=== PATIENT | male | born 1985 | race African-American/Black ===

== ENCOUNTER 2016-04-21 19:25 | Emergency (ER) | payer OTHER ==
[2016-04-21 19:34] VITALS: TEMP 97.9; BMI 34.7
--- NOTE | 2016-04-21 19:54 | PDOC ---
History of Present Illness - General History Source: Patient Exam Limitations: No Limitations - History of Present Illness Initial Comments: 04/21/16 21:38 The patient is a 30-year-old male, with a significant past medical history of migraines, hypertension(on atenolol), and pre-diabetes, who presents to the emergency department complaining of a migraine for approximately 2 days. The patient reports he typically experiences 1 episode of migraines per week, which usually resolve, but today it has not. The patient states he took a percocet at approximately 14:00, with minimal relief for about an hour, but the headache has returned. The patient reports his migraine is normally localized on the left side of his head, but today it is on the right side. He states he has trouble opening his right eye due to right-sided headache. The patient reports his headache is exacerbated with exposure to light, and mildly alleviated in a darker environment. He reports associated nausea, but denies vomiting, diarrhea , or constipation. He reports intermittent SOB, but denies chest pain, palpitations, diaphoresis. He reports he has been having cold-like symptoms since June of 2015. He reports he was treated for an ear infection on 04/10/16, for which he was given ear drops. The patient denies any recent travel. The patient denies any sick contacts. Allergies: None reported. Past Surgical History: Knee surgery (1 month ago) Social History: Non-smoker. Denies alcohol or drug use. <Tracy Murrieta - Last Filed: 04/22/16 02:53> <Xuan Wick - Last Filed: 04/23/16 02:11> - General Chief Complaint: Migraine Headache Stated Complaint: HEADACHE Time Seen by Provider: 04/21/16 19:54 Past History <Tracy Murrieta - Last Filed: 04/22/16 02:53> - Psycho/Social/Smoking Cessation Hx Suicidal Ideation: No Smoking History: Never smoked Information on smoking cessation initiated: No Hx Alcohol Use: No Drug/Substance Use Hx: No <Xuan Wick - Last Filed: 04/23/16 02:11> - Past Medical History Allergies/Adverse Reactions: Allergies Allergy/AdvReac Type Severity Reaction Status Date / Time No Known Allergies Allergy Verified 04/21/16 19:30 Home Medications: Ambulatory Orders Atenolol [Tenormin] 50 mg PO DAILY 04/21/16 Oxycodone HCl/Acetaminophen [Percocet 5-325 mg Tablet] 1 tab PO Q6H PRN Review of Systems - Review of Systems Able to Perform ROS?: Yes Comments:: 04/21/16 21:38 GENERAL/CONSTITUTIONAL: No fever or chills. No weakness. HEAD, EYES, EARS, NOSE AND THROAT: +Photophobia. No ear pain or discharge. No sore throat. CARDIOVASCULAR: +Intermittent SOB. No chest pain. RESPIRATORY: No cough, wheezing, or hemoptysis. GASTROINTESTINAL: +Nausea. No vomiting, diarrhea or constipation. GENITOURINARY: No dysuria, frequency, or change in urination. MUSCULOSKELETAL: No joint or muscle swelling or pain. No neck or back pain. SKIN: No rash NEUROLOGIC: +Headache. No vertigo, loss of consciousness, or change in strength/ sensation. ENDOCRINE: No increased thirst. No abnormal weight change. HEMATOLOGIC/LYMPHATIC: No anemia, easy bleeding, or history of blood clots. ALLERGIC/IMMUNOLOGIC: No hives or skin allergy. <Tracy Murrieta - Last Filed: 04/22/16 02:53> *Physical Exam - Vital Signs Last Vital Signs Temp Pulse Resp BP Pulse Ox 97.9 F 58 L 14 143/79 97 04/21/16 19:30 04/21/16 19:30 04/21/16 19:30 04/21/16 19:30 04/21/16 19:30 - Physical Exam Comments: 04/21/16 21:38 GENERAL: Awake, alert, and fully oriented. +Mild discomfort HEAD: No signs of trauma EYES: PERRLA, EOMI, sclera anicteric, conjunctiva clear ENT: +2 Postauricular nodes. Tympanic membranes normal bilaterally. Hearing grossly normal, nares patent, oropharynx clear without exudates. Moist mucosa NECK: Normal ROM, supple, no lymphadenopathy, JVD, or masses LUNGS: Breath sounds equal, clear to auscultation bilaterally. No wheezes, and no crackles HEART: Regular rate and rhythm, normal S1 and S2, no murmurs, rubs or gallops ABDOMEN: Soft, nontender, normoactive bowel sounds. No guarding, no rebound. No masses EXTREMITIES: Normal range of motion, no edema. No clubbing or cyanosis. No cords, erythema, or tenderness NEUROLOGICAL: Cranial nerves II through XII grossly intact. Normal speech, normal gait SKIN: Warm, Dry, normal turgor, no rashes or lesions noted. <Tracy Murrieta - Last Filed: 04/22/16 02:53> - Vital Signs Last Vital Signs Temp Pulse Resp BP Pulse Ox 97.9 F 58 L 14 143/79 97 04/21/16 19:30 04/21/16 19:30 04/21/16 19:30 04/21/16 19:30 04/21/16 19:30 <Xuan Wick - Last Filed: 04/23/16 02:11> ED Treatment Course - LABORATORY CBC & Chemistry Diagram: 04/21/16 21:10 04/21/16 21:10 - RADIOLOGY Radiograph Interpretation: 04/21/16 22:37 EXAM: Head CT INTERPRETED BY: Dr. Jeter REVIEWED BY: Dr. Wick IMPRESSION: No CT evidence of acute intracranial pathology. <Tracy Murrieta - Last Filed: 04/22/16 02:53> - LABORATORY CBC & Chemistry Diagram: 04/21/16 21:10 04/21/16 21:10 <Xuan Wick - Last Filed: 04/23/16 02:11> Medical Decision Making - Medical Decision Making 04/22/16 02:43 Microblogged hospitalists at 02:43 for admission. Case discussed with Dr. Ordoñez at 02:53. <Tracy Murrieta - Last Filed: 04/22/16 02:53> - Medical Decision Making 04/22/16 06:58 Pt comes with a history of migraines. He has a PMD at [facility], but doesn't know the name; he takes percocet for headaches and states that the ANNE usually go away. For the last 2 days he has continued headaches. 04/22/16 07:36 Pt's headache improving with meds, but he still has a faint headache. We discussed the need for LP to r/o bleed, or to evaluate for viral / bacterial meningitis. 04/22/16 07:38 Patient has no xanthochromia when the specimen of spinal fluid is spun down. Pt will be sent home with neurology follow up. Pt is feeling vastly improved. 04/23/16 02:09 Pt will be discharged and asked to follow with neurology. <Xuan Wick - Last Filed: 04/23/16 02:11> *DC/Admit/Observation/Transfer - Attestations Scribe Attestion: 04/21/16 21:39 Documentation prepared by Tracy Murrieta, acting as medical care evaluation specialist for Xuan Wick MD. <Tracy Murrieta - Last Filed: 04/22/16 02:53> - Discharge Dispostion Admit: No <Xuan Wick - Last Filed: 04/23/16 02:11> Diagnosis at time of Disposition: Headache - Discharge Dispostion Condition at time of disposition: Improved - Referrals Referrals: Isidro Hoffmann MD [Staff Physician] - Kelly Flores MD [Staff Physician] - Alise Evans MD [Staff Physician] - Kell Boateng MD [Staff Physician] - Balwinder Mckeon MD [Staff Physician] - Yan Underwood MD [Staff Physician] - Joseluis Lerma MD [Non Staff, Medical] - - Patient Instructions Printed Discharge Instructions: DI for Headache
[2016-04-21] MEDS ORDERED: METOCLOPRAMIDE HCL INJECTION 10 MG/2 ML VIAL IM ONE (20:49)
[2016-04-21] MEDS ORDERED: diphenhydrAMINE HCL 25 MG CAPSULE (FP) PO ONE ×2 (20:49→20:54)
[2016-04-21] MEDS ORDERED: OXYCODONE/APAP 5/325MG COMBO TABLET PO ONE (20:50)
[2016-04-21] MEDS ORDERED: METOCLOPRAMIDE HCL INJECTION 10 MG/2 ML VIAL ONE (20:54)
[2016-04-21] MEDS ORDERED: OXYCODONE/APAP 5/325MG COMBO TABLET ONE (20:54)
[2016-04-21 21:17] LABS: EOSINOPHIL 1.4 % (0-4.5); MCHC 32.9 g/dl (32.0-35.9); MEAN CELL VOLUME 88.2 fl (80-96); MEAN PLT VOLUME 7.3 fl (7.5-11.1); NEUTROPHILS 74.4 % (42.8-82.8); PLATELET COUNT 432 K/MM3 (134-434); RDW 13.2 % (11.9-15.9); WHITE BLOOD COUNT 15.8 K/mm3 (4.0-10.0)
[2016-04-21 21:30] LABS: INR 1.02 (0.82-1.09); PROTHROMBIN TIME (PATIENT) 11.2 SEC (9.98-11.88)
[2016-04-21 21:39] LABS: ALBUMIN 4.1 g/dl (3.4-5.0); ANION GAP 6 (8-16); BILIRUBIN,TOTAL 0.3 mg/dL (0.2-1.0); CO2 31 mmol/L (21-32); CREATININE 1.1 mg/dL (0.7-1.3); GLUCOSE,RANDOM 107 mg/dL (74-106); SGOT/AST 24 U/L (15-37); SGPT/ALT 62 U/L (12-78); TOT PROT 8.2 g/dl (6.4-8.2)
[2016-04-21 21:40] LABS: ALK PHOS 62 U/L (45-117)
[2016-04-22] MEDS ORDERED: LIDOCAINE HCL/PF 1% SDV 5ML VIAL ONE (00:39)
[2016-04-22 02:46] LABS: GLUCOSE,CSF 64 mg/dL (50-80)
[2016-04-22 03:44] LABS: CSF APPEARANCE HAZY; CSF COLOR PINK
[2016-04-22 03:45] LABS: CSF NEUTROPHILS 33 %; CSF RBC 8700 /mm3
[2016-04-22 05:03] LABS: CSF APPEARANCE HAZY; CSF COLOR PINK
[2016-04-22 05:04] LABS: CSF NEUTROPHILS 34 %; CSF RBC 7100 /mm3
[2016-04-22 06:53] VITALS: BP 136/70; PULSE 62
== END 2016-04-22 07:50 | disposition home or self-care (01) ==
LOC: JER 19:25
PROC: 3E0233Z Introduction of Anti-inflammatory into Muscle, Percutaneous Approach (ICD-10-PCS; principal; 2016-04-21)
PROC: 009U3ZX Drainage of Spinal Canal, Percutaneous Approach, Diagnostic (ICD-10-PCS; 2016-04-21)
DX: G43.909 Migraine, unspecified, not intractable, without status migrainosus (principal)
CPT/HCPCS: 36415; 62270; 70450-TC; 71020-TC; 80053; 82945; 84157; 85025; 85610; 87070; 87205; 89050; 96372; 99282-25

== ENCOUNTER 2021-07-27 00:23 | Emergency (ER) | payer OTHER ==
[2021-07-27 00:40] VITALS: BP 142/90; PULSE 100; TEMP 98.2; BMI 36.6
[2021-07-27] MEDS ORDERED: DIPHTH,PERTUSS(ACELL),TET 0.5 ML DISP.SYRIN IM ONE ×2 (00:40→00:47)
[2021-07-27] MEDS ORDERED: AMOX TR/POT CLAV 875MG/125MG TABLETS (FP) PO ONE (00:41)
[2021-07-27] MEDS ORDERED: IBUPROFEN 600 MG TABLET (FP) PO ONE ×2 (00:41→00:47)
[2021-07-27] MEDS ORDERED: AMOX TR/POT CLAV 875MG/125MG TABLETS (FP) ONE (00:47)
== END 2021-07-27 01:46 | disposition home or self-care (01) ==
LOC: JER 00:23
PROC: 3E0234Z Introduction of Serum, Toxoid and Vaccine into Muscle, Percutaneous Approach (ICD-10-PCS; principal; 2021-07-27)
DX: S90.811A Abrasion, right foot, initial encounter (principal); W54.0XXA Bitten by dog, initial encounter
CPT/HCPCS: 90471; 90715; 99284-25

== ENCOUNTER 2021-08-05 22:23 | Inpatient (IN) | payer OTHER ==
[2021-08-05] MEDS ORDERED: AMPICILLIN NA/SULBACTAM NA 1.5 GM in SODIUM CHLORIDE 100 ML IVPB ONE (23:21)
[2021-08-05] MEDS ORDERED: VANCOMYCIN 1 GM in D5W (PRE-DOCKED) 1,000 MG/250 ML IVPB ONE (23:22)
[2021-08-06 00:03] LABS: BASO % 0.5 % (0-2.0); EOS % 2.4 % (0-4.5); HEMATOCRIT 40.9 % (35.4-49); HEMOGLOBIN 13.8 GM/dL (11.7-16.9); LYMPH % 42.1 % (8-40); MCH 29.3 pg (25.7-33.7); MCHC 33.8 g/dl (32.0-35.9); MEAN CELL VOLUME 86.7 fl (80-96); PLATELET COUNT 361 10^3/uL (134-434); RBC 4.72 M/mm3 (4.00-5.60); WHITE BLOOD COUNT 8.6 K/mm3 (4.0-10.0)
[2021-08-06] MEDS ORDERED: VANCOMYCIN 1 GRAM (PRE-DOCKED) 1,000 MG/250 ML BAG IVPB ONE (00:07)
[2021-08-06 00:19] LABS: INR 1.01 (0.83-1.09); PROTHROMBIN TIME (PATIENT) 11.6 SEC (9.7-13.0)
[2021-08-06 00:23] LABS: CHLORIDE 105 mmol/L (98-107); SODIUM 140 mmol/L (136-145)
[2021-08-06 00:25] LABS: CALCIUM 9.3 mg/dL (8.5-10.1)
[2021-08-06 00:26] LABS: ALBUMIN 3.7 g/dl (3.4-5.0); ANION GAP 4 MMOL/L (8-16); BLOOD UREA NITROGEN 15.7 mg/dL (7-18); CO2 30 mmol/L (21-32); GLUCOSE,RANDOM 120 mg/dL (74-106)
[2021-08-06 00:29] LABS: CREATININE 1.1 mg/dL (0.55-1.3); SGOT/AST 19 U/L (15-37); SGPT/ALT 44 U/L (13-61)
[2021-08-06] MEDS ORDERED: AMPICILLIN NA/SULBACTAM NA 3 GM in SODIUM CHLORIDE 100 ML IVPB ONE (00:29)
[2021-08-06 00:30] LABS: BILIRUBIN,TOTAL 0.4 mg/dL (0.2-1)
[2021-08-06 00:31] LABS: TOT PROT 7.2 g/dl (6.4-8.2)
[2021-08-06 00:32] LABS: ALK PHOS 50 U/L (45-117)
[2021-08-06 08:25] VITALS: TEMP 97.8; BMI 36.6
[2021-08-06] MEDS ORDERED: AMPICILLIN NA/SULBACTAM NA 3 GM in SODIUM CHLORIDE 100 ML IVPB SCH ×2 (09:00→09:58)
[2021-08-06] MEDS ORDERED: VANCOMYCIN/WATER 1,250 MG/250 ML BAG IVPB SCH ×2 (10:00)
[2021-08-06] MEDS ORDERED: ENOXAPARIN NA (PORCINE) 40 MG/0.4 ML DISP.SYRIN SQ SCH (10:00)
[2021-08-06 11:11] VITALS: BP 151/105; PULSE 68
[2021-08-06] MEDS ORDERED: amLODIPine BESYLATE 10 MG TABLET (FP) PO SCH (11:30)
[2021-08-06] MEDS ORDERED: LIDOCAINE HCL 1%, 10 MG/ML (20ML VIAL) ONE (11:39)
[2021-08-06] MEDS ORDERED: LIDOCAINE HCL 1%, 10 MG/ML (20ML VIAL) SQ ONE (11:58)
[2021-08-06] MEDS ORDERED: AMOX TR/POT CLAV 875MG/125MG TABLETS (FP) PO SCH ×2 (17:30)
== END 2021-08-06 13:16 | disposition home or self-care (01) | DRG 384 ==
LOC: JER 22:23 → JERBED 08-06 03:38 → J5S 08-06 08:12
PROVIDERS: ADMIT Internal Medicine; ATTEND Internal Medicine
PROC: 0W9F3ZX Drainage of Abdominal Wall, Percutaneous Approach, Diagnostic (ICD-10-PCS; principal; 2021-08-06)
DX: S31.154A Open bite of abdominal wall, left lower quadrant without penetration into peritoneal cavity, initial encounter (principal); I10 Essential (primary) hypertension; G43.909 Migraine, unspecified, not intractable, without status migrainosus; K82.8 Other specified diseases of gallbladder; R73.03 Prediabetes; F17.210 Nicotine dependence, cigarettes, uncomplicated; J98.11 Atelectasis; S30.1XXA Contusion of abdominal wall, initial encounter; Z68.36 Body mass index [BMI] 36.0-36.9, adult; E66.9 Obesity, unspecified; W54.0XXA Bitten by dog, initial encounter; Y92.098 Other place in other non-institutional residence as the place of occurrence of the external cause
CPT/HCPCS: 36415; 74177-TC; 80053; 85025; 85610; 85730; 86140; 86850; 86900; 86901; 87040; 87070; 87205; 93005; 93010; 99285-25; C9803-CS; Q9967; U0003; U0005